=== PATIENT | male | born 1995 | race Caucasian/White ===

== ENCOUNTER → 2018-04-08 | Outpatient (CLI) | payer OTHER ==
--- NOTE | 2018-04-08 13:50 | RAD ---
INDICATION: Left testicular pain, intermittent for a couple of months. TECHNIQUE: Grayscale, color-flow, and spectral waveform analysis was performed. FINDINGS: Right testicle measures 5.0 x 3.0 x 2.8 cm and the left 4.5 x 3.0 x 2.6 cm. There is microlithiasis of the testes bilaterally. There is no mass. Color flow is symmetric and low resistance waveform documented. Epididymides are within normal limits. There is a small left hydrocele. There is no varicocele. IMPRESSION: 1. No evidence of testicular torsion or mass. 2. Small left hydrocele. Electronically signed by: Thaddeus Azevedo MD (04/08/2018 1:46 PM) [facility]
--- NOTE | 2018-04-08 13:54 | RAD ---
INDICATION: Right inguinal enlarged lymph node. TECHNIQUE: Ultrasound of the right inguinal region was performed. Patient could not locate the area of clinical palpable concern at the time of the exam. FINDINGS: There are several lymph nodes with normal fatty notch is noted in the right inguinal region, up to 24 x 7 x 6 mm in size. No pathologically enlarged node is identified. There is no fluid collection or hernia apparent. IMPRESSION: Mildly prominent lymph nodes in the right inguinal region may be reactive. Electronically signed by: Thaddeus Azevedo MD (04/08/2018 1:51 PM) [facility]
== END | disposition home or self-care (01) ==
LOC: US 08:39
PROVIDERS: ATTEND Family Medicine
DX: N43.2 Other hydrocele (principal); R59.0 Localized enlarged lymph nodes
CPT/HCPCS: 76870; 76881